=== PATIENT | male | born 1990 | race Caucasian/White ===

== ENCOUNTER 2017-08-25 20:31 | Inpatient (IN) | payer OTHER, MEDICAID ==
[~2017-08-25] VITALS: Ht 182.9 cm; Wt 86.2 kg
--- NOTE | 2017-08-25 23:00 | NUR ---
Pre admission note Pt seen in intake office. Pt noted to be intoxicated but in stable condition. V/S WNL. Policies on medication disposal explained to and understood by patient. Will admit patient to unit. Will continue to monitor.
--- NOTE | 2017-08-25 23:21 | NUR ---
Admission note Pt is a 26 yo male, A+Ox4, presenting to [facility] for Opiate/ETOH/Meth withdrawal. Pt has Allergiw to Naloxone, is on full code status, and on Regular diet. Pt is 6'0 in height and 190 LBS in weight. Pt has medical HX of insomnia, Hepatitis C, and chronic nerve pain in bilateral hands and on back. Pt has family HX of HTN from father. Pt has a primary care provider named Dr. Keyes. Pt has been taking Subutex SL for 6 months, has reached a level of 12mg/daily, and last dose was 12mg on 08-25-17 @0900. Pt has been drinking Alcohol for 10 years (2 weeks currently), has reached a level of 900ml Vodka/daily, and last drink was a 24oz beer on 08-25-17 @1100. Pt has been using methamphetamine IV for 4 to 5 year (2weeks currently), has reached a level of 1gm-2gm/daily, and last dose was 2gm on 08-25-17 @2100. Pt has HX of previous detox/rehab @ [facility] level of care in [place], [place] in 05/2017 for 90 days. This was the patient's last time sober. Pt is not a cigarette smoker but patient states "I Vape daily". Pt appears intoxicated but in stable condition. V/S WNL. Respirations even and unlabored. Will continue to monitor.
[2017-08-25] MEDS ORDERED: GABA600T2 PO (23:29)
[2017-08-25] MEDS ORDERED: BUPR8TAB4 SL (23:29)
[2017-08-25] MEDS ORDERED: QUET50TA PO (23:29)
[2017-08-25] MEDS ORDERED: LORAZEPAM 2 MG/1 ML VIAL IM PRN (23:30)
[2017-08-25] MEDS ORDERED: ONDANSETRON ODT 4 MG TAB.RAPDIS SL PRN (23:30)
[2017-08-25] MEDS ORDERED: MAGNESIUM HYDROXIDE 30 ML LIQUID UDC PO PRN (23:30)
[2017-08-25] MEDS ORDERED: METHOCARBAMOL 750 MG TABLET PO PRN (23:30)
[2017-08-25] MEDS ORDERED: LORAZEPAM 1 MG TABLET PO PRN ×2 (23:30)
[2017-08-25] MEDS ORDERED: PROMETHAZINE HCL 25 MG TABLET PO PRN (23:30)
[2017-08-25] MEDS ORDERED: BUPRENORPHINE HCL 2 MG TAB.SUBL SL PRN (23:30)
[2017-08-25] MEDS ORDERED: MIRALAX 17 GM POWD.PACK PO PRN (23:30)
[2017-08-25] MEDS ORDERED: LOPERAMIDE HCL 2 MG CAPSULE PO PRN ×2 (23:30)
[2017-08-25] MEDS ORDERED: MAG HYDROX/AL HYDROX/SIMETH 30 ML LIQUID UDC PO PRN (23:30)
[2017-08-25] MEDS ORDERED: CLONIDINE HCL 0.1 MG TABLET PO PRN (23:30)
[2017-08-25] MEDS ORDERED: THIAMINE HCL 200 MG/2 ML VIAL IM ONE (23:30)
[2017-08-25] MEDS ORDERED: ONDANSETRON 4 MG/2 ML VIAL IM PRN (23:30)
[2017-08-25] MEDS ORDERED: diphenhydrAMINE 50 MG CAPSULE PO PRN (23:30)
[2017-08-25 23:31] VITALS: BP 149/84
[2017-08-25 23:59] LABS: *AMPHETAMINE, URINE POSITIVE (NEGATIVE); *BARBITURATE, URINE NEGATIVE (NEGATIVE); *CANNABINOID, URINE POSITIVE (NEGATIVE); *COCCAINE, URINE POSITIVE (NEGATIVE); *OPIATE, URINE POSITIVE (NEGATIVE); *PHENCYCLIDINE SCREEN,URINE NEGATIVE (NEGATIVE)
[2017-08-26 00:25] VITALS: BP 142/82
[2017-08-26 04:08] VITALS: BP 134/77
--- NOTE | 2017-08-26 06:58 | NUR ---
End of shift note Newly admitted patient. Pt was continuously noted to be intoxicated during shift. Pt also noted with anxiety, agitation, and restlessness. Pt left room periodically to go smoke on smoking patio and to get food from kitchen. Pt was not given any PRNs during shift. outside plant cable engineer came to draw patients blood x2 but was unable due to patient being a hard stick. An additional draw will be attempted in AM. Pt slept for a total of 6 HRS. Last COWS: 7 and Last CIWA: 7 @0400. V/S were WNL during shift. Pt is on PRN Ativan and Subutex awaiting further evaluation from MD for taper regimen. Respirations even and unlabored. Will endorse to day shift nurse.
--- NOTE | 2017-08-26 07:48 | NUR ---
START OF SHIFT Endorse rcvd from ongoing nurse. Client is in bed in a position, a/o x 4, he presents anxious mood, flat affect, flushed face, clammy skin, he has difficulty concentrating. Client reports in a pressured voice; abdominal cramps, feeling of panic, restless legs, and fatigue. Encourage client to increase PO fluid to facilitate detox. Encourage client to participate in ADL and to attend group therapy for skills to maintain sober. Last CIWA 7/ 7 @ 0400. Client slept 6 hrs. [place] precautions rendered. Call light within reach.
[2017-08-26 08:00] VITALS: BP 94/54
[2017-08-26] MEDS ORDERED: MULTIVITAMINS,THERAPEUTIC TABLET PO SCH (09:00)
[2017-08-26] MEDS ORDERED: TUBERCULIN,PURIF.PROT.DERIV. 5 TU/0.1 ML TEST ID ONE (09:00)
[2017-08-26] MEDS: FOLIC ACID 1 MG TABLET PO SCH (09:00)
[2017-08-26] MEDS: THIAMINE HCL 100 MG TABLET PO SCH (09:00)
[2017-08-26] MEDS: MULTIVITAMINS,THERAPEUTIC TABLET PO SCH (09:00)
--- NOTE | 2017-08-26 12:47 | NUR ---
Therapist encouraged client to go to groups and share with others, which would benefit with reducing anxiety and social isolation.
[2017-08-26 13:30] VITALS: BP 116/69
[2017-08-26] MEDS: ACETAMINOPHEN 325 MG TABLET PO PRN (13:36)
--- NOTE | 2017-08-26 13:36 | NUR ---
PRN Subutex 4mg SL, Ativan 2mg PO, Tylenol 650mg PO administered for anxiety, irritability, body aches, yawning, dilated pupils, sneezing, flushed face, tremors, and headache.
--- NOTE | 2017-08-26 14:06 | NUR ---
Reassess PRN Subutex 4mg SL administered for COWS 19, decreased to COWS 13.he continues to complain of body aches, anxiety/irritability.
--- NOTE | 2017-08-26 14:36 | NUR ---
Reassess Ativan 2mg PO, Tylenol 650mg reports relief from anxiety, irritability, sneezing, flushed face, tremors, and headache. CIWA 5.
[2017-08-26 15:04] LABS: BASOPHILS # (AUTO) 0.1 K/uL (0.0-8.0); BASOPHILS % (AUTO) 0.8 % (0.0-2.0); HEMOGLOBIN 13.2 g/dL (12.5-16.3); LYMPHOCYTES % (AUTO) 29.6 % (20.5-51.5); MEAN CORPUSCULAR HGB CONC 35 g/dL (32.5-36.3); MONOCYTES # (AUTO) 0.6 K/uL (2.0-10.0); MONOCYTES % (AUTO) 8.2 % (0.0-11.0); NEUTROPHILS # (AUTO) 2.2 K/uL (1.8-8.9); NEUTROPHILS % (AUTO) 32.8 % (38.5-71.5); PLATELET COUNT (AUTO) 195 K/uL (152-348); RED BLOOD CELL COUNT(AUTO) 4.42 MIL/uL (4.06-5.63); WHITE BLOOD COUNT (AUTO) 6.9 K/uL (3.6-10.2)
[2017-08-26 15:12] LABS: EOSINOPHILS % (AUTO) 28.6 % (0.0-7.0)
[2017-08-26 15:16] LABS: ALANINE AMINOTRANSFERASE 108 U/L (16-63); ALKALINE PHOSPHATASE 84 U/L (50-136); AMYLASE 24 U/L (25-115); ASPARTATE AMINOTRANSFERASE 56 U/L (15-37); BILIRUBIN,TOTAL 0.6 mg/dL (0.2-1.0); CARBON DIOXIDE 31 mmol/L (21-32); CHLORIDE 104 mmol/L (98-107); CREATININE 1.1 mg/dL (0.6-1.3); GLUCOSE 100 mg/dL (74-106); LIPASE 80 U/L (73-393); MAGNESIUM 1.9 mg/dL (1.8-2.4); POTASSIUM 4.1 mmol/L (3.5-5.1); UREA NITROGEN, BLOOD 19 mg/dL (7-18)
[2017-08-26 16:35] VITALS: BP 143/84
[2017-08-26] MEDS: BUPRENORPHINE HCL 2 MG TAB.SUBL SL SCH ×2 (16:40→23:37)
[2017-08-26] MEDS: GABAPENTIN 300 MG CAPSULE PO SCH (16:40)
[2017-08-26] MEDS ORDERED: Medication Not On Formulary EA (Gabapentin 1 TAB) PO SCH (17:00)
[2017-08-26 17:04] LABS: ETHANOL < 3 MG/DL (0-0)
[2017-08-26 17:39] LABS: BAND % (MANUAL) 1 % (0-10); LYMPHOCYTES % (MANUAL) 26 % (20-40); NEUTROPHILS % (MANUAL) 36 % (42-75)
[2017-08-26 17:40] LABS: EOSINOPHILS % (MANUAL) 29 % (0-8); MONOCYTES % (MANUAL) 8 % (2-10)
--- NOTE | 2017-08-26 19:44 | NUR ---
END OF SHIFT Endorsed client to incoming nurse, client is a/o x 4, he is not compliant with group therapy due to withdrawal symptoms, he continues to present with anxious mood, flat affect, body aches, restless legs, gross tremors, dilated pupils, sneezing, yawning, and nausea. He consumed ~ 50% of meals. Adequate PO fluid intake 1950mL, void x 2, stool x 1. Last CIWA 4/COWS 15 @ 1600. Call light within reach.
--- NOTE | 2017-08-26 19:45 | NUR ---
Start of shift note Received report from day shift nurse. Pt is a 26 yo male, A+Ox4, presenting to [facility] for Opiate/ETOH/Meth withdrawal. Pt was noted to be anxious, agitated, and with restless legs. Pt has HX of insomnia, and chronic nerve pain which will be monitored during shift. Pt is on 5 day Subutex taper, tolerated well, and will start 5 day Ativan taper tomorrow. Respirations even and unlabored. Will continue to monitor.
[2017-08-26 20:15] VITALS: BP 131/92
[2017-08-26] MEDS: QUETIAPINE FUMARATE 25 MG TABLET PO SCH (23:37)
[2017-08-27 00:15] VITALS: BP 140/79
[2017-08-27 04:19] VITALS: BP 134/76
--- NOTE | 2017-08-27 07:00 | NUR ---
End of shift note Pt was continuously noted with restless legs, anxiety, and agitation during shift. Pt was out of room frequently to get food from kitchen, interact with others in recreational room, and to go smoke on smoking patio. No PRNs given during shift. Pt slept for a total of 8 HRS. Last COWS: 8 and Last CIWA: 8 @0400. V/S were WNL during shift. Respirations even and unlabored. Will endorse to day shift nurse.
--- NOTE | 2017-08-27 07:54 | NUR ---
Start of shift note-Pt in bed appears to be asleep. Resp even and unlabored. No s/s distress. Pt admitted for subutex, ETOH, and meth dependency. FULL CODE, ALLERGY NALAXONE. Pt slept for a total of 8 HRS. Last COWS: 8 and Last CIWA: 8 @0400. PMH of HEP C, chronic nerve pain in hands and back.Pt on 5 day subutex taper and 4 day ativan taper. Safety measures in place. Will continue to monitor.
[2017-08-27 08:00] VITALS: BP 111/56
[2017-08-27] MEDS: MULTIVITAMINS,THERAPEUTIC TABLET PO SCH (09:10)
[2017-08-27] MEDS: LORAZEPAM 1 MG TABLET PO SCH ×3 (09:11→21:00)
[2017-08-27] MEDS: THIAMINE HCL 100 MG TABLET PO SCH (09:13)
[2017-08-27] MEDS: BUPRENORPHINE HCL 2 MG TAB.SUBL SL SCH ×3 (09:13→21:00)
[2017-08-27] MEDS: GABAPENTIN 300 MG CAPSULE PO SCH ×2 (09:13→17:15)
[2017-08-27] MEDS: FOLIC ACID 1 MG TABLET PO SCH (09:13)
[2017-08-27 12:00] VITALS: BP 92/54
[2017-08-27] MEDS: IBUPROFEN 600 MG TABLET PO PRN (15:46)
--- NOTE | 2017-08-27 15:48 | NUR ---
PRN Ibuprofen 600 mg PO for pain. Pt c/o headache #4/10
[2017-08-27 16:00] VITALS: BP 148/76
--- NOTE | 2017-08-27 16:45 | NUR ---
Reassess ibuprofen, Pt states headache at #1/10, medication effective.
--- NOTE | 2017-08-27 18:26 | NUR ---
End of shift- Pt admitted for EOTH, Subutex and ativan dependency. Pt disoriented, confused, oriented x2. Pt 1:1 for safety. Pt weak bilateral lower extremities, needs assistance with transfers. Pt had PT session today. Ambulates with walker and assistance. Gait unsteady. Needs assistance at all times. Pt incontinent at times, has diaper on. Pt got up to toilet with assist to void. IV D5 1/2 half NS at 75cc/hour. IV site patent, #22 tari on right forearm. Pt on O2 3L n/c. sat 95%, respirations even and unlabored. Occasional cough. Pt c/o chronic pain in hips and ribs. Elevated BP, PRN medications administered per MD orders. Pt FULL CODE, ALLERGY CLINDAMYCIN. 2 gm sodium diet. At 1600 last COWS 8 and CIWA 9. Pt had poor PO liquid intake 355 ml, IV Fluids 900 ml, voids X 5, no BM. Pt's bed on lowest position, and side rails up 2x. will endorse to next shift. Addendum: 08/27/17 at 1828 by Belinda Lauren RN Chart on wrong patient- this note is an error.
--- NOTE | 2017-08-27 18:28 | NUR ---
End of shift note- Pt admitted for subutex, ETOH, and meth dependency. FULL CODE, ALLERGY NALAXONE. Pt isolative, slept off and on most of the day, did not attend group therapy. Mood depressed, flat affect. Pt irritable at times. At 1600 last COWS: 9 CIWA: 7. PMH of HEP C, chronic nerve pain in hands and back. Pt on 5 day subutex taper and 4 day ativan taper, he is tolerating well. Pt had poor PO liquid intake 500 ml, voids X 2, BM X 1. Safety measures in place. Will endorse to next shift.
--- NOTE | 2017-08-27 19:15 | NUR ---
Start of shift note Received report from day shift nurse. Pt is a 26 yo male, A+Ox4, presenting to [facility] for Opiate/ETOH/Meth withdrawal. Pt was noted to be agitated and anxious. Pt has HX of Insomnia and chronic nerve pain which will be monitored during shift. Pt is on 5 day Subutex and 4 dya Ativan taper, tolerated well. Respirations even and unlabored. Will continue to monitor.
[2017-08-27 20:08] VITALS: BP 123/70
[2017-08-27] MEDS: QUETIAPINE FUMARATE 25 MG TABLET PO SCH (21:00)
[2017-08-28 00:10] VITALS: BP 140/78
[2017-08-28 04:44] VITALS: BP 132/79
--- NOTE | 2017-08-28 07:00 | NUR ---
End of shift note Pt was continuously noted with anxiety and agitation during shift. Pt remained in room majority of shift. No PRNs given during shift. Pt slept for a total of 11 HRS. Last COWS: 9 and Last CIWA: 7 @0400. V/S were WNL during shift. Respirations even and unlabored. Will endorse to day shift nurse.
--- NOTE | 2017-08-28 07:38 | NUR ---
START OF SHIFT Endorse rcvd from ongoing nurse. Client is in bed in under the covers, flushed face, skin cold and sweaty to touch with goosebump, he presents with anxious mood, flat affect. Client looks disheveled, dirt under fingernails noted. Client is a/o x 4. Client requests to turn off the lights stating, "it hurts too much." he reports abdominal cramps, feeling of panic, restless legs, and fatigue. Encourage client to increase PO fluid to facilitate detox. Encourage client to participate in ADL and to attend group therapy for skills to maintain sober. Last CIWA 9 @ 0400. Client slept 11 hrs. [place] precautions rendered. Call light within reach.
[2017-08-28 08:55] VITALS: BP 131/78
[2017-08-28] MEDS ORDERED: BUPRENORPHINE HCL 2 MG TAB.SUBL SL SCH ×2 (09:00→15:00)
[2017-08-28] MEDS: GABAPENTIN 300 MG CAPSULE PO SCH (09:46)
[2017-08-28] MEDS: FOLIC ACID 1 MG TABLET PO SCH (09:46)
[2017-08-28] MEDS: MULTIVITAMINS,THERAPEUTIC TABLET PO SCH (09:46)
[2017-08-28] MEDS: LORAZEPAM 1 MG TABLET PO SCH ×2 (09:46→12:41)
[2017-08-28] MEDS: THIAMINE HCL 100 MG TABLET PO SCH (09:46)
[2017-08-28 11:06] LABS: HEPATITIS B SURFACE AG Negative (Negative)
[2017-08-28 12:00] VITALS: BP 107/66
--- NOTE | 2017-08-28 13:35 | NUR ---
Client requests to leave AMA, stating, "I am not ready to stop using Subutex." Encourage client to consider leaving AMA and to continue his treatment, but he is adamant to leave. DARRYL Love and administration staff notified.
[2017-08-28] MEDS: IBUPROFEN 600 MG TABLET PO PRN (14:31)
[2017-08-28] MEDS: ACETAMINOPHEN 325 MG TABLET PO PRN (14:31)
[2017-08-28 14:33] VITALS: BP 139/82
--- NOTE | 2017-08-28 14:33 | NUR ---
PRN Clonidine 0.1mg SL, Motrin 600mg PO, Tylenol 650mg PO administered for anxiety, irritability, cold/chills, generalized body aches 02/03. Call light within reach.
[2017-08-28] MEDS ORDERED: HYDROXYZINE PAMOATE 25 MG CAPSULE PO PRN (14:45)
[2017-08-28] MEDS ORDERED: ACETAMINOPHEN ES 500 MG TABLET PO PRN (14:45)
--- NOTE | 2017-08-28 15:33 | NUR ---
Reassess PRN Clonidine 0.1mg SL, Motrin 600mg PO, Tylenol 650mg PO, client reports, "I do not feel any difference, I just want to leave now."
--- NOTE | 2017-08-28 15:37 | NUR ---
AMA NOTE Client stated the he was not ready and wanted to use. pt was educated about the risks and consequences of leaving AMA, pt verbalized understanding but still requested to leave. multiple staff members spoke with pt without any success. VS are WNL, pt denies any suicidal/homicidal ideations, skin intact , Dr. Michelle notified. Pt was given a list of community resources in case he is in need of help. all belongings returned to pt. pt left the unit at 1537pm.
[2017-08-29] MEDS ORDERED: LORAZEPAM 1 MG TABLET PO SCH (09:00)
[2017-08-29] MEDS ORDERED: BUPRENORPHINE HCL 2 MG TAB.SUBL SL SCH (09:00)
[2017-08-30] MEDS ORDERED: BUPRENORPHINE HCL 2 MG TAB.SUBL SL SCH (09:00)
[2017-08-30] MEDS ORDERED: LORAZEPAM 1 MG TABLET PO SCH (09:00)
== END 2017-08-28 15:37 | disposition left against medical advice (07) | DRG 894 ==
LOC: EDSEX → SRC 21:33
PROVIDERS: ADMIT Internal Medicine; ATTEND Internal Medicine
PROC: HZ2ZZZZ Detoxification Services for Substance Abuse Treatment (ICD-10-PCS; principal; 2017-08-25)
PROC: HZ41ZZZ Group Counseling for Substance Abuse Treatment, Behavioral (ICD-10-PCS; 2017-08-26)
PROC: HZ31ZZZ Individual Counseling for Substance Abuse Treatment, Behavioral (ICD-10-PCS; 2017-08-28)
DX: F10.239 Alcohol dependence with withdrawal, unspecified (principal); K70.10 Alcoholic hepatitis without ascites; B19.20 Unspecified viral hepatitis C without hepatic coma; F11.23 Opioid dependence with withdrawal; Y90.9 Presence of alcohol in blood, level not specified; F17.210 Nicotine dependence, cigarettes, uncomplicated; G47.00 Insomnia, unspecified
CPT/HCPCS: 36415; 70030-TC; 80307; 80324; 80349; 80353; 80361; 83690; 83735; 84443; 85025; 86592; 86705; 86803; 87340; 87806; A4663; G0480